=== PATIENT | female | born 1965 | race African-American/Black ===

== ENCOUNTER 2018-08-29 08:01 | Inpatient (IN) | payer MEDICAID ==
[~2018-08-29] VITALS: Ht 149.9 cm; Wt 66.2 kg
[2018-08-29] VITALS (9 sets, daily range): BP systolic 114–163; BP diastolic 61–85
--- NOTE | 2018-08-29 08:14 | NUR ---
ED Nurse Note: Pt came into the ER w/ complaints of abdominal pain x 3 weeks. Pt is rating the pain an 8/10. Non radiating. Pt denies havingt n,v,d. Pt is also complaining of headache that started this morning and rating that pain a 10/10. Pt is A + O x4. Ambulatory. Skin warm to touch.
[2018-08-29] MEDS ORDERED: Ketorolac 30mg Inj IV ONE (08:30)
[2018-08-29 08:59] LABS: APPEARANCE,URINE SLIGHTLY CLOUDY; BILIRUBIN, URINE NEGATIVE (NEGATIVE); GLUCOSE, URINE (UA) NEGATIVE (NEGATIVE); KETONES,URINE NEGATIVE (NEGATIVE); LEUKOCYTE ESTERASE ,URINE 1+ (NEGATIVE); NITRITE,URINE NEGATIVE (NEGATIVE); PH,URINE 5 (4.5-8.0); PROTEIN,URINE 1+ (NEGATIVE); UROBILINOGEN,URINE 1 MG/DL (0.0-1.0)
[2018-08-29 09:00] LABS: COLOR,URINE YELLOW; HEMATOCRIT 21.4 % (37.0-47.0); MEAN CORPUSCULAR VOLUME 62 FL (80-99); PLATELET COUNT 392 K/UL (150-450); RED BLOOD COUNT 3.46 M/UL (4.20-5.40); RED CELL DISTRIBUTION WIDTH 14.7 % (11.6-14.8); WHITE BLOOD COUNT 3.4 K/UL (4.8-10.8)
[2018-08-29 09:02] LABS: HEMOGLOBIN 6.2 G/DL (12.0-16.0)
[2018-08-29 09:03] LABS: ANION GAP 9 mmol/L (5-15); BLOOD UREA NITROGEN 9 mg/dL (7-18); CALCIUM 8.7 MG/DL (8.5-10.1); CARBON DIOXIDE 26 MMOL/L (21-32); CHLORIDE 105 MMOL/L (98-107); CREATININE 0.6 MG/DL (0.55-1.30); POTASSIUM 3.8 MMOL/L (3.5-5.1); SODIUM 140 MMOL/L (136-145)
[2018-08-29 09:08] LABS: ALANINE AMINOTRANSFERASE 17 U/L (12-78); ALBUMIN 3.7 G/DL (3.4-5.0); ALBUMIN/GLOBULIN RATIO 0.9 (1.0-2.7); ALKALINE PHOSPHATASE 52 U/L (46-116); ASPARTATE AMINO TRANSFERASE 13 U/L (15-37); BILIRUBIN,TOTAL 0.2 MG/DL (0.2-1.0)
--- NOTE | 2018-08-29 09:50 | NUR ---
ED Nurse Note: Notified Dr. Whitfield of hgb level of 6.2. Will continue to monitor.
[2018-08-29] MEDS ORDERED: oxyCODONE HCL/Acetaminophen 5/325mg ORAL ONE (11:00)
--- NOTE | 2018-08-29 11:48 | NUR ---
ED Nurse Note: Called lab for blood, blood still pending.
--- NOTE | 2018-08-29 13:05 | Emergency Room Report ---
History of Present Illness General Chief Complaint: Abdominal Pain Source: Patient Present Illness HPI Patient presents with 2 problems. She has been having headaches for 3 weeks. She feels pounding pressure and also tenderness over the left mastoid process. She denies any fevers or chills. There is no change in hearing. She is never had headaches like this before. There is no nausea or vomiting. The pain is rated 8/10 and constant. She denies any family history of aneurysms. The pain gradually came on and has persisted. She denies taking blood thinners , oncologic problems, unilateral weakness. The second problem is epigastric pain. She says she feels burning indigestion feelings. Also pressure in the upper abdomen. There is no change in her bowels. She denies cardiac risk factors and denies chest pain. The patient has anemia. She has extremely heavy periods. She denies dysuria. The patient does not like taking medication and has not taken any for the headache or the epigastric discomfort. 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: 08/09/18 Reviewed Nursing Documentation: PMH: Agreed; PSxH: Agreed Nursing Documentation-PMH Past Medical History: No Stated History Review of Systems All Other Systems: negative except mentioned in HPI Physical Exam Vital Signs Date Time Temp Pulse Resp B/P (MAP) Pulse Ox O2 Delivery O2 Flow Rate FiO2 08/29/18 08:07 98.1 69 18 155/85 99 Room Air 08/29/18 08:18 100 Sp02 EP Interpretation: reviewed, normal General Appearance: well appearing, no apparent distress, GCS 15 Head: normocephalic Eyes: bilateral eye PERRL, bilateral eye EOMI, bilateral eye conjunctivae pale ENT: moist mucus membranes, other - Some fluid behind left tympanic membrane Neck: supple Respiratory: lungs clear, normal breath sounds Cardiovascular #1: regular rate, rhythm Cardiovascular #2: 2+ radial (R) Gastrointestinal: normal inspection, normal bowel sounds, non tender, no mass, non-distended Musculoskeletal: back normal, gait/station normal, normal range of motion Neurologic: alert, oriented x3, grossly normal Psychiatric: mood/affect normal Skin: warm/dry, pallor Medical Decision Making Diagnostic Impression: Primary Impression: Profound anemia Qualified Codes: D50.0 - Iron deficiency anemia secondary to blood loss ( chronic) Additional Impressions: Menometrorrhagia Headache Qualified Codes: G44.89 - Other headache syndrome ER Course Patient presents with headache and epigastric pain. Differential includes tension, mastoiditis, serous otitis media on the left, migraine variant amongst others. The epigastric pain differential includes gastritis, gallbladder disease, GERD amongst others. Patient will be evaluated with labs. The patient will receive Toradol and Pepcid. CT of the head is not indicated based on the clinical history and exam. Called with critical hemoglobin. Blood sent for type and Rh. Discussed with patient risks and benefit of blood transfusion. CMP and urinalysis negative. Headache most likely related to anemia and possibly tension. Percocet given orally. Blood transfusions begun. Patient with resolution of symptoms. Admitted for continued blood transfusion and further evaluation to Dr. Burton. Laboratory Tests Test 08/29/18 08:32 White Blood Count 3.4 K/UL (4.8-10.8) L Red Blood Count 3.46 M/UL (4.20-5.40) L Hemoglobin 6.2 G/DL (12.0-16.0) *L Hematocrit 21.4 % (37.0-47.0) L Mean Corpuscular Volume 62 FL (80-99) L Mean Corpuscular Hemoglobin 17.9 PG (27.0-31.0) L Mean Corpuscular Hemoglobin Concent 28.8 G/DL (32.0-36.0) L Red Cell Distribution Width 14.7 % (11.6-14.8) Platelet Count 392 K/UL (150-450) Mean Platelet Volume 5.8 FL (6.5-10.1) L Neutrophils (%) (Auto) % (45.0-75.0) Lymphocytes (%) (Auto) % (20.0-45.0) Monocytes (%) (Auto) % (1.0-10.0) Eosinophils (%) (Auto) % (0.0-3.0) Basophils (%) (Auto) % (0.0-2.0) Differential Total Cells Counted 100 Neutrophils % (Manual) 61 % (45-75) Lymphocytes % (Manual) 32 % (20-45) Monocytes % (Manual) 2 % (1-10) Eosinophils % (Manual) 5 % (0-3) H Basophils % (Manual) 0 % (0-2) Band Neutrophils 0 % (0-8) Platelet Estimate Adequate Platelet Morphology Normal Hypochromasia 2+ Erythrocyte Sedimentation Rate 35 MM/HR (0-30) H Urine Color Yellow Urine Appearance Slightly cloudy Urine pH 5 (4.5-8.0) Urine Specific [place] 1.020 (1.005-1.035) Urine Protein 1+ (NEGATIVE) H Urine Glucose (UA) Negative (NEGATIVE) Urine Ketones Negative (NEGATIVE) Urine Blood 1+ (NEGATIVE) H Urine Nitrite Negative (NEGATIVE) Urine Bilirubin Negative (NEGATIVE) Urine Urobilinogen 1 MG/DL (0.0-1.0) H Urine Leukocyte Esterase 1+ (NEGATIVE) H Urine RBC 0-2 /HPF (0 - 2) Urine WBC 2-4 /HPF (0 - 2) Urine Squamous Epithelial Cells Moderate /LPF (NONE/OCC) H Urine Bacteria Few /HPF (NONE) Urine Mucus Few /LPF (NONE/OCC) H Urine HCG, Qualitative Negative (NEGATIVE) Sodium Level 140 MMOL/L (136-145) Potassium Level 3.8 MMOL/L (3.5-5.1) Chloride Level 105 MMOL/L (98-107) Carbon Dioxide Level 26 MMOL/L (21-32) Anion Gap 9 mmol/L (5-15) Blood Urea Nitrogen 9 mg/dL (7-18) Creatinine 0.6 MG/DL (0.55-1.30) Estimate Glomerular Filtration Rate > 60 mL/min (>60) Glucose Level 96 MG/DL (74-106) Calcium Level 8.7 MG/DL (8.5-10.1) Total Bilirubin 0.2 MG/DL (0.2-1.0) Aspartate Amino Transferase (AST) 13 U/L (15-37) L Alanine Aminotransferase (ALT) 17 U/L (12-78) Alkaline Phosphatase 52 U/L (46-116) Total Protein 7.8 G/DL (6.4-8.2) Albumin 3.7 G/DL (3.4-5.0) Globulin 4.1 g/dL Albumin/Globulin Ratio 0.9 (1.0-2.7) L Lipase 92 U/L (73-393) Rhythm Strip Diag. Results EP Interpretation: yes Rhythm: NSR, no PVC's, no ectopy Last Vital Signs Date Time Temp Pulse Resp B/P (MAP) Pulse Ox O2 Delivery O2 Flow Rate FiO2 08/29/18 20:00 98.0 72 17 128/74 (92) 99 72 08/29/18 14:00 Room Air 08/29/18 13:40 100 Status: improved Disposition: ADMITTED INPATIENT Condition: Serious Scripts No Active Prescriptions or Reported Meds Referrals: NOT CHOSEN IPA/,REFERRING (PCP) Malcolm Whitfield MD Aug 29, 2018 13:05
--- NOTE | 2018-08-29 13:22 | NUR ---
ED Nurse Note: TELEPHONE REPORT GIVEN TO ZENON FRAGA
--- NOTE | 2018-08-29 13:40 | NUR ---
ED Nurse Note: Pt transferred up to med surg unit. No acute distress noted. Left Er w/ all belongings.
--- NOTE | 2018-08-29 13:54 | NUR ---
Patient received to floor at 1350 in stable condition, report received via telephone by ER nurse Peg, patient accompanied to unit by ct scan technician. Belongings accounted for, $106 in mireles counted at bedside by RN and ct scan technician. No acute distress noted, patient is reporting no pain at this time. First bag of ordered blood running through LAC IV @ 150mL/hr, no signs of transfusion reaction noted. Patient oriented to room, instructed on use of call light. Side rails upx2, bed low and locked, call light in reach. Will continue to monitor.
[2018-08-29] MEDS ORDERED: Morphine Sulfate 2mg/ml Inj(IV/IM USE ONLY) IVP PRN (14:00)
[2018-08-29] MEDS ORDERED: LORazepam Inj 2mg/ml 1ml IV PRN (14:00)
[2018-08-29] MEDS ORDERED: Mylanta II UD 30ml ORAL PRN (14:00)
[2018-08-29] MEDS ORDERED: Miralax 17gm pkt ORAL PRN (14:00)
[2018-08-29] MEDS ORDERED: Zolpidem 5mg tab ORAL PRN (14:00)
--- NOTE | 2018-08-29 14:34 | NUR ---
NURSE NOTES: First bag of blood complete. VS stable. Called blood bank and confirmed second bag is ready, will tow picker and administered as ordered.
--- NOTE | 2018-08-29 14:36 | NUR ---
CHARGE NURSE NOTES: Confirmed with Jovita that he wants a total of 3 units of PRBC transfused. Relayed to Emely YARBROUGH.
--- NOTE | 2018-08-29 15:06 | NUR ---
NURSE NOTES: Second unit of PRBC started @ 75mL/hr. Patient is in stable condition, VS stable. At bedside observing for signs of transfusion reaction. Pre transfusion VS: temp 97.4, HR 65, BP 134/85.
--- NOTE | 2018-08-29 15:14 | NUR ---
NURSE NOTES: Blood transfusion rate increased to 100mL/hr. Patient remains in stable condition.
--- NOTE | 2018-08-29 15:21 | NUR ---
NURSE NOTES: 15 minute post transfusion start vital signs: temp 98.6 HR 66 BP 132/84. No distress noted, no signs of transfusion reaction observed. Transfusion rate increased to 125mL/hr.
[2018-08-29 15:51] LABS: LACTATE DEHYDROGENASE 145 U/L (81-234)
[2018-08-29 16:30] LABS: % IRON SATURATION 4 % (15-50); IRON 17 ug/dL (50-175); TOTAL IRON BINDING CAPACITY 482 ug/dL (250-450)
--- NOTE | 2018-08-29 16:45 | NUR ---
NURSE NOTES: Blood transfusion rate increased to 150mL/hr. Patient remains in stable condition.
--- NOTE | 2018-08-29 18:43 | NUR ---
NURSE NOTES: Called Elli in blood bank. Elli reports final bag of blood is not ready yet and she will call when ready. Will continue to monitor.
--- NOTE | 2018-08-29 18:47 | NUR ---
NURSE NOTES: Blood transfusion complete. No signs of transfusion reactions noted. Post transfusion VS: temp 99.3, HR 83, BP 116/71
--- NOTE | 2018-08-29 19:45 | NUR ---
HAND-OFF: Report given to Aruna YARBROUGH. Patient is in stable condition. Endorsed to follow up on third unit of blood.
[2018-08-29] MEDS: Sucralfate 1gm tab ORAL SCH (20:13)
[2018-08-29] MEDS: Pantoprazole Inj IVP SCH (20:13)
--- NOTE | 2018-08-29 20:15 | NUR ---
NURSE NOTES: Recvd report from day shift nurse; pt a/o x4; no s/s of pain; family is at bedside; iv intact and patent; SCD running; VSS; patient ambulates well; safety precautions in place; bed at lowest position; call light within reach; will continue to monitor
[2018-08-29 20:32] LABS: BASOPHILS % (AUTO) 1.6 % (0.0-2.0); HEMATOCRIT 28.1 % (37.0-47.0); HEMOGLOBIN 8.9 G/DL (12.0-16.0); LYMPHOCYTES % (AUTO) 34.4 % (20.0-45.0); MEAN CORPUSCULAR VOLUME 68 FL (80-99); MONOCYTES % (AUTO) 8.9 % (1.0-10.0); NEUTROPHILS % (AUTO) 50.2 % (45.0-75.0); PLATELET COUNT 367 K/UL (150-450); RED BLOOD COUNT 4.17 M/UL (4.20-5.40); RED CELL DISTRIBUTION WIDTH 19.7 % (11.6-14.8); WHITE BLOOD COUNT 5.3 K/UL (4.8-10.8)
--- NOTE | 2018-08-29 22:00 | NUR ---
NURSE NOTES: Per Dr. Infante, no need to infuse 3rd unit of PRBCs. Will continue to monitor.
[2018-08-30] VITALS: BP 114/60
--- NOTE | 2018-08-30 03:01 | History and Physical Report ---
DATE OF ADMISSION: 08/29/2018 CHIEF COMPLAINT: The patient is a 53-year-old female, who presents with a chief complaint of abdominal pain. HISTORY OF PRESENT ILLNESS: Began approximately 3 weeks ago. The patient began to experience epigastric pain. Pain has now become generalized. The patient has had some nausea. The patient denies melena or hematemesis. The patient presented to [place] emergency room. Hemoglobin was found to be 6.2. The patient is admitted for abdominal pain, severe anemia, and probable gastrointestinal hemorrhage. REVIEW OF SYSTEMS: CONSTITUTIONAL: The patient denies weight loss or weight gain. The patient denies fevers or chills. HEENT: The patient denies ear or throat pain. The patient denies headache. CARDIOVASCULAR: The patient denies palpitations or chest pain. CHEST: The patient denies wheeze or shortness of breath. ABDOMINAL: The patient complains of epigastric pain. The patient complains of nausea without vomiting. The patient denies constipation, diarrhea, melena, or hematemesis. GENITOURINARY: The patient denies dysuria or increased frequency of urination. NEUROMUSCULAR: The patient denies seizures or generalized weakness. PAST MEDICAL HISTORY: The patient denies. Last menstrual period stated to be 08/24/2018. PAST SURGICAL HISTORY: Significant for section x2. CURRENT MEDICATIONS: The patient denies. ALLERGIES: No known drug allergies. 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 The patient denies tobacco or alcohol use. PHYSICAL EXAMINATION: VITAL SIGNS: Temperature 98.0, respirations 20, pulse 80, and blood pressure 135/77. GENERAL: The patient is a well-developed and well-nourished female, in no apparent distress. HEENT: Eyes, pupils are equal and responsive to light and accommodation. Extraocular movements are intact. NECK: Supple without lymphadenopathy. CHEST: Lungs are clear to auscultation bilaterally without wheezes or rales. CARDIOVASCULAR: Regular rhythm and rate. S1 and S2 are normal without murmurs, rubs, or gallops. ABDOMEN: Soft, nontender, and nondistended. Positive bowel sounds. No evidence of hepatosplenomegaly. Currently, no rebound or guarding noted. EXTREMITIES: Negative for clubbing, cyanosis, or edema. RECTAL/GENITAL: Refused. NEUROLOGIC: Cranial nerves II through XII are grossly intact without focal deficits. Motor strength is 5/5 bilaterally. Deep tendon reflexes are 2+ plantar. LABORATORY STUDIES: WBC 3.4, hemoglobin 6.2, hematocrit 21.4, and platelets 292,000. Sodium 140, potassium 3.8, chloride 105, CO2 26, BUN 9, creatinine 0.6, and glucose 96. Iron level 17, TIBC 42, and iron saturation 4. ASSESSMENT: This is a 53-year-old female with, 1. Severe anemia. 2. Abdominal pain. 3. Nausea. TREATMENT: 1. Severe anemia. The patient's admission hemoglobin was 6.2. The patient has received 2 units of packed RBCs in the emergency room. Given the history of abdominal pain, the patient may have bleeding ulcer. A Gastroenterology consultation has been obtained with Dr. Derek Alvarenga. The patient will probably require endoscopy and colonoscopy during this hospitalization. 2. Abdominal pain. The patient has been offered pain medication. The patient is currently receiving morphine intravenously every 4 hours p.r.n. The patient has been started on intravenous Protonix. 3. Nausea with vomiting. The patient has been started on Zofran p.r.n. Deven Infante M.D. DR: RICHA JOB#: [id number] CC:
[2018-08-30 04:00] VITALS: BP 120/62
[2018-08-30 06:38] LABS: BASOPHILS % (AUTO) 1.5 % (0.0-2.0); HEMATOCRIT 28.5 % (37.0-47.0); HEMOGLOBIN 8.7 G/DL (12.0-16.0); LYMPHOCYTES % (AUTO) 35.9 % (20.0-45.0); MEAN CORPUSCULAR VOLUME 69 FL (80-99); MONOCYTES % (AUTO) 7.3 % (1.0-10.0); NEUTROPHILS % (AUTO) 48.3 % (45.0-75.0); PLATELET COUNT 314 K/UL (150-450); RED BLOOD COUNT 4.15 M/UL (4.20-5.40); RED CELL DISTRIBUTION WIDTH 19.7 % (11.6-14.8); WHITE BLOOD COUNT 3.8 K/UL (4.8-10.8)
[2018-08-30 07:03] LABS: ALANINE AMINOTRANSFERASE 18 U/L (12-78); ALBUMIN 3.2 G/DL (3.4-5.0); ALBUMIN/GLOBULIN RATIO 0.9 (1.0-2.7); ALKALINE PHOSPHATASE 49 U/L (46-116); ANION GAP 6 mmol/L (5-15); ASPARTATE AMINO TRANSFERASE 15 U/L (15-37); BILIRUBIN,TOTAL 0.6 MG/DL (0.2-1.0); BLOOD UREA NITROGEN 7 mg/dL (7-18); CALCIUM 8.6 MG/DL (8.5-10.1); CARBON DIOXIDE 28 MMOL/L (21-32); CHLORIDE 106 MMOL/L (98-107); CREATININE 0.7 MG/DL (0.55-1.30); POTASSIUM 4.3 MMOL/L (3.5-5.1); SODIUM 140 MMOL/L (136-145)
--- NOTE | 2018-08-30 07:26 | NUR ---
HAND-OFF: Report given to
--- NOTE | 2018-08-30 07:30 | NUR ---
NURSE NOTES: Patient is in bed awake and able to verbalize needs. Patient is stable, denies pain or SOB at this time. Patient encouraged to use call light for assistance, verbalized understanding. Patient is comfortable in bed with call light within reach. All needs met at this time. All safety measures provided. Will continue to monitor.
[2018-08-30 08:00] VITALS: BP 129/72
[2018-08-30] MEDS: Pantoprazole Inj IVP SCH (09:05)
[2018-08-30] MEDS: Sucralfate 1gm tab ORAL SCH ×2 (09:05→13:14)
--- NOTE | 2018-08-30 10:55 | GI Initial Consult Note ---
History of Present Illness General Date patient seen: Aug 30, 2018 Time patient seen: 10:51 Reason for Hospitalization: Abdominal Pain Referring physician: ROSS RUTLEDGE Reason for Consultation: Abdominal pain Present Illness HPI Patient presents with 2 problems. She has been having headaches for 3 weeks. She feels pounding pressure and also tenderness over the left mastoid process. She denies any fevers or chills. There is no change in hearing. She is never had headaches like this before. There is no nausea or vomiting. The pain is rated 8/10 and constant. She denies any family history of aneurysms. The pain gradually came on and has persisted. She denies taking blood thinners , oncologic problems, unilateral weakness. The second problem is epigastric pain. She says she feels burning indigestion feelings. Also pressure in the upper abdomen. There is no change in her bowels. She denies cardiac risk factors and denies chest pain. The patient has anemia. She has extremely heavy periods. She denies dysuria. The patient does not like taking medication and has not taken any for the headache or the epigastric discomfort. GI consulted for abdominal pain. Patient was seen, awake alert and oriented x4 no apparent distress. Patient denied any abdominal pain at this time, however stated he had abdominal discomfort which he felt was acid reflux. In addition the patient had complaints of abdominal bloating with excessive flatulence. The patient has no history of endoscopic or colonoscopy. She presents today with low hemoglobin level of 6.2 and low iron saturation 4%. She is aware of her anemia, believes that it was contributed by her recent menorrhagia which occurred approximately 3 days ago. Patient denies any constipation, diarrhea, nausea or vomiting. The patient also complains of a sharp pain to her left temporal bone. 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 Reviewed Nursing Documentation: PMH: Agreed; PSxH: Agreed Nursing Documentation-PM Past Medical History: No Stated History Social History: Denies: smoking, alcohol use, drug use, other Review of Systems All Other Systems: negative except mentioned in HPI Physical Exam Vital Signs Date Time Temp Pulse Resp B/P (MAP) Pulse Ox O2 Delivery O2 Flow Rate FiO2 08/29/18 08:07 98.1 69 18 155/85 99 Room Air 08/29/18 08:18 100 Sp02 EP Interpretation: reviewed, normal Labs Laboratory Tests Test 08/29/18 19:23 08/29/18 20:07 08/30/18 05:35 Prothrombin Time 10.5 SEC (9.30-11.50) Prothromb Time International Ratio 1.0 (0.9-1.1) Activated Partial Thromboplast Time 26 SEC (23-33) White Blood Count 5.3 K/UL (4.8-10.8) # 3.8 K/UL (4.8-10.8) L Red Blood Count 4.17 M/UL (4.20-5.40) L 4.15 M/UL (4.20-5.40) L Hemoglobin 8.9 G/DL (12.0-16.0) #L 8.7 G/DL (12.0-16.0) L Hematocrit 28.1 % (37.0-47.0) #L 28.5 % (37.0-47.0) L Mean Corpuscular Volume 68 FL (80-99) #L 69 FL (80-99) L Mean Corpuscular Hemoglobin 21.3 PG (27.0-31.0) L 21.0 PG (27.0-31.0) L Mean Corpuscular Hemoglobin Concent 31.5 G/DL (32.0-36.0) L 30.6 G/DL (32.0-36.0) L Red Cell Distribution Width 19.7 % (11.6-14.8) H 19.7 % (11.6-14.8) H Platelet Count 367 K/UL (150-450) 314 K/UL (150-450) Mean Platelet Volume 5.5 FL (6.5-10.1) L 5.8 FL (6.5-10.1) L Neutrophils (%) (Auto) 50.2 % (45.0-75.0) 48.3 % (45.0-75.0) Lymphocytes (%) (Auto) 34.4 % (20.0-45.0) 35.9 % (20.0-45.0) Monocytes (%) (Auto) 8.9 % (1.0-10.0) 7.3 % (1.0-10.0) Eosinophils (%) (Auto) 5.0 % (0.0-3.0) H 7.0 % (0.0-3.0) H Basophils (%) (Auto) 1.6 % (0.0-2.0) 1.5 % (0.0-2.0) Sodium Level 140 MMOL/L (136-145) Potassium Level 4.3 MMOL/L (3.5-5.1) Chloride Level 106 MMOL/L (98-107) Carbon Dioxide Level 28 MMOL/L (21-32) Anion Gap 6 mmol/L (5-15) Blood Urea Nitrogen 7 mg/dL (7-18) Creatinine 0.7 MG/DL (0.55-1.30) Estimat Glomerular Filtration Rate > 60 mL/min (>60) Glucose Level 82 MG/DL (74-106) Calcium Level 8.6 MG/DL (8.5-10.1) Total Bilirubin 0.6 MG/DL (0.2-1.0) Aspartate Amino Transf (AST/SGOT) 15 U/L (15-37) Alanine Aminotransferase (ALT/SGPT) 18 U/L (12-78) Alkaline Phosphatase 49 U/L (46-116) Total Protein 6.9 G/DL (6.4-8.2) Albumin 3.2 G/DL (3.4-5.0) L Globulin 3.7 g/dL Albumin/Globulin Ratio 0.9 (1.0-2.7) L Thyroid Stimulating Hormone (TSH) 0.505 uiU/mL (0.358-3.740) General Appearance: well appearing, no apparent distress, alert Head: normocephalic EENT: PERRL/EOMI, normal ENT inspection Neck: supple Respiratory: normal breath sounds, no respiratory distress Cardiovascular: normal rate Gastrointestinal: normal inspection, non tender, soft, normal bowel sounds, non -distended Rectal: deferred Genitourinary: no CVA tenderness Musculoskeletal: normal inspection, back normal Neurologic: normal inspection, alert, oriented x3, responsive Psychiatric: normal inspection, judgement/insight normal, memory normal Skin: normal inspection, normal color, no rash, warm/dry, palpation normal, well hydrated Lymphatic: normal inspection, no adenopathy Current Medications Current Medications Medications (Trade) Dose Ordered Sig/Chloe Route PRN Reason Start Time Stop Time Status Last Admin Dose Admin Acetaminophen (Tylenol) 650 mg Q4H PRN ORAL fever 08/29/18 14:00 09/28/18 13:59 Al Hydroxide/Mg Hydroxide (Mylanta II) 30 ml Q6H PRN ORAL dyspepsia 08/29/18 14:00 09/28/18 13:59 Dextrose (Dextrose 50%) 25 ml Q30M PRN IV Hypoglycemia 08/29/18 14:00 09/28/18 13:59 Dextrose (Dextrose 50%) 50 ml Q30M PRN IV Hypoglycemia 08/29/18 14:00 09/28/18 13:59 Lorazepam (Ativan 2mg/ml 1ml) 0.5 mg Q4H PRN IV For Anxiety 08/29/18 14:00 09/05/18 13:59 Morphine Sulfate (Morphine Sulfate) 1 mg Q4H PRN IVP For Pain 08/29/18 14:00 09/05/18 13:59 08/30/18 06:14 Ondansetron HCl (Zofran) 4 mg Q6H PRN IVP Nausea & Vomiting 08/29/18 14:00 09/28/18 13:59 Pantoprazole (Protonix) 40 mg EVERY 12 HOURS IVP 08/29/18 21:00 09/28/18 20:59 08/30/18 09:05 Polyethylene Glycol (Miralax) 17 gm HSPRN PRN ORAL Constipation 08/29/18 14:00 09/28/18 13:59 Sucralfate (Carafate) 1 gm FOUR TIMES A DAY ORAL 08/29/18 21:00 09/28/18 20:59 08/30/18 09:05 Zolpidem Tartrate (Ambien) 5 mg HSPRN PRN ORAL Insomnia 08/29/18 14:00 09/05/18 13:59 GI: Plan Problems: (1) GERD (gastroesophageal reflux disease) (2) Profound anemia (3) Menometrorrhagia (4) Headache Plan EGD/colonoscopy only if emergent, profound anemia most likely due to menorrhagia. anemia work up OB stool r/o GI bleed monitor H&H, prn transfusions bowel regime ppi regular diet fu labs outpatient GI procedures Discussed with Dr. Alvarenga. Thank you for this patient referral, we will follow. The patient was seen and examined at bedside and all new and available data was reviewed in the patients chart. I agree with the above findings, impression and plan. (Patient seen earlier today. Signature stamp does not reflect patient encounter time.). - MD Kadi MartinezCity Of Hope, [place] CIGAR INSPECTOR Aug 30, 2018 10:55
[2018-08-30 12:00] VITALS: BP 135/105
[2018-08-30] MEDS ORDERED: SUCRALFATE1 GM ORAL (12:08)
--- NOTE | 2018-08-30 12:14 | Consultation ---
History of Present Illness General Date patient seen: Aug 30, 2018 Chief Complaint: Abdominal Pain Referring physician: ROSS RUTLEDGE Reason for Consultation: inpatient management Present Illness HPI 53 year old female with hx of heavy menses, presented to ER with CC of headaches for 3 weeks. She denies any fevers or chills. The pain is rated 8/ 10 and constant. She denies any family history of aneurysms. The pain gradually came on and has persisted. She is also c/o epigastric pain. She says she feels burning indigestion feelings. Also pressure in the upper abdomen. She has extremely heavy periods. She had hemoglobin of 6 and is admitted for severe anemia. Allergies: Coded Allergies: No Known Allergies (Unverified , 08/29/18) Medication History Scheduled Sucralfate* (Carafate*), 1 GM ORAL FOUR TIMES A DAY Patient History Healthcare decision maker N Resuscitation status Full Code Advanced Directive on File Past Medical/Surgical History Past Medical/Surgical History: (1) Menometrorrhagia Review of Systems All Other Systems: negative except mentioned in HPI Physical Exam General Appearance: WD/WN Lines, tubes and drains: peripheral HEENT: normocephalic, atraumatic Neck: non-tender, normal alignment Respiratory/Chest: chest wall non-tender, lungs clear Cardiovascular/Chest: normal peripheral pulses Abdomen: normal bowel sounds Genitourinary/Rectal: normal genital exam Extremities: normal range of motion Last 24 Hour Vital Signs Date Time Temp Pulse Resp B/P (MAP) Pulse Ox O2 Delivery O2 Flow Rate FiO2 08/30/18 09:00 Room Air 08/30/18 08:00 97.9 64 19 129/72 (91) 98 08/30/18 04:00 97.6 63 17 120/62 (81) 98 08/30/18 00:00 97.8 68 19 114/60 (78) 98 72 08/29/18 21:00 Room Air 08/29/18 20:00 98.0 72 17 128/74 (92) 99 72 08/29/18 18:47 99.3 83 18 116/71 (86) 99 08/29/18 15:21 98.6 66 18 132/84 (100) 99 08/29/18 14:32 97.4 65 18 134/85 (101) 100 08/29/18 14:00 Room Air 08/29/18 13:40 98.1 88 20 135/77 98 Room Air 100 08/29/18 12:30 98.0 65 16 08/29/18 12:27 97.1 84 18 114/61 100 Room Air 100 08/29/18 12:14 97.1 78 18 08/29/18 12:13 97.1 78 16 114/61 100 Room Air 100 Intake and Output 08/29/18 08/30/18 18:59 06:59 Intake Total 300 ml 860 ml Balance 300 ml 860 ml Intake Oral 300 ml 360 ml Blood Product 500 ml # Voids 3 1 Laboratory Tests Test 08/29/18 19:23 08/29/18 20:07 08/30/18 05:35 Prothrombin Time 10.5 SEC (9.30-11.50) Prothromb Time International Ratio 1.0 (0.9-1.1) Activated Partial Thromboplast Time 26 SEC (23-33) White Blood Count 5.3 K/UL (4.8-10.8) # 3.8 K/UL (4.8-10.8) L Red Blood Count 4.17 M/UL (4.20-5.40) L 4.15 M/UL (4.20-5.40) L Hemoglobin 8.9 G/DL (12.0-16.0) #L 8.7 G/DL (12.0-16.0) L Hematocrit 28.1 % (37.0-47.0) #L 28.5 % (37.0-47.0) L Mean Corpuscular Volume 68 FL (80-99) #L 69 FL (80-99) L Mean Corpuscular Hemoglobin 21.3 PG (27.0-31.0) L 21.0 PG (27.0-31.0) L Mean Corpuscular Hemoglobin Concent 31.5 G/DL (32.0-36.0) L 30.6 G/DL (32.0-36.0) L Red Cell Distribution Width 19.7 % (11.6-14.8) H 19.7 % (11.6-14.8) H Platelet Count 367 K/UL (150-450) 314 K/UL (150-450) Mean Platelet Volume 5.5 FL (6.5-10.1) L 5.8 FL (6.5-10.1) L Neutrophils (%) (Auto) 50.2 % (45.0-75.0) 48.3 % (45.0-75.0) Lymphocytes (%) (Auto) 34.4 % (20.0-45.0) 35.9 % (20.0-45.0) Monocytes (%) (Auto) 8.9 % (1.0-10.0) 7.3 % (1.0-10.0) Eosinophils (%) (Auto) 5.0 % (0.0-3.0) H 7.0 % (0.0-3.0) H Basophils (%) (Auto) 1.6 % (0.0-2.0) 1.5 % (0.0-2.0) Sodium Level 140 MMOL/L (136-145) Potassium Level 4.3 MMOL/L (3.5-5.1) Chloride Level 106 MMOL/L (98-107) Carbon Dioxide Level 28 MMOL/L (21-32) Anion Gap 6 mmol/L (5-15) Blood Urea Nitrogen 7 mg/dL (7-18) Creatinine 0.7 MG/DL (0.55-1.30) Estimat Glomerular Filtration Rate > 60 mL/min (>60) Glucose Level 82 MG/DL (74-106) Calcium Level 8.6 MG/DL (8.5-10.1) Total Bilirubin 0.6 MG/DL (0.2-1.0) Aspartate Amino Transf (AST/SGOT) 15 U/L (15-37) Alanine Aminotransferase (ALT/SGPT) 18 U/L (12-78) Alkaline Phosphatase 49 U/L (46-116) Total Protein 6.9 G/DL (6.4-8.2) Albumin 3.2 G/DL (3.4-5.0) L Globulin 3.7 g/dL Albumin/Globulin Ratio 0.9 (1.0-2.7) L Thyroid Stimulating Hormone (TSH) 0.505 uiU/mL (0.358-3.740) Height (Feet): 4 Height (Inches): 11.00 Weight (Pounds): 146 Medications Current Medications Medications (Trade) Dose Ordered Sig/Chloe Route PRN Reason Start Time Stop Time Status Last Admin Dose Admin Acetaminophen (Tylenol) 650 mg Q4H PRN ORAL fever 08/29/18 14:00 09/28/18 13:59 Al Hydroxide/Mg Hydroxide (Mylanta II) 30 ml Q6H PRN ORAL dyspepsia 08/29/18 14:00 09/28/18 13:59 Dextrose (Dextrose 50%) 25 ml Q30M PRN IV Hypoglycemia 08/29/18 14:00 09/28/18 13:59 Dextrose (Dextrose 50%) 50 ml Q30M PRN IV Hypoglycemia 08/29/18 14:00 09/28/18 13:59 Iron Sucrose 100 mg/Sodium Chloride 60 ml @ 240 mls/hr BEDTIME IVPB 08/30/18 21:00 09/03/18 21:14 UNV Iron Sucrose 200 mg/Sodium Chloride 120 ml @ 240 mls/hr ONCE ONCE IVPB 08/30/18 12:15 08/30/18 12:44 UNV Lorazepam (Ativan 2mg/ml 1ml) 0.5 mg Q4H PRN IV For Anxiety 08/29/18 14:00 09/05/18 13:59 Morphine Sulfate (Morphine Sulfate) 1 mg Q4H PRN IVP For Pain 08/29/18 14:00 09/05/18 13:59 08/30/18 06:14 Ondansetron HCl (Zofran) 4 mg Q6H PRN IVP Nausea & Vomiting 08/29/18 14:00 09/28/18 13:59 Pantoprazole (Protonix) 40 mg EVERY 12 HOURS IVP 08/29/18 21:00 09/28/18 20:59 08/30/18 09:05 Polyethylene Glycol (Miralax) 17 gm HSPRN PRN ORAL Constipation 08/29/18 14:00 09/28/18 13:59 Sucralfate (Carafate) 1 gm FOUR TIMES A DAY ORAL 08/29/18 21:00 09/28/18 20:59 08/30/18 09:05 Zolpidem Tartrate (Ambien) 5 mg HSPRN PRN ORAL Insomnia 08/29/18 14:00 09/05/18 13:59 Assessment/Plan Problem List: (1) Profound anemia ICD Codes: D64.9 - Anemia, unspecified SNOMED: 434649123 Qualifiers: Qualified Codes: D50.0 - Iron deficiency anemia secondary to blood loss ( chronic) (2) Menometrorrhagia ICD Codes: N92.1 - Excessive and frequent menstruation with irregular cycle SNOMED: 847796962 Diagnosis [place] I: pt got 2 units of prbc will give some Iron iv CT of head for intractable headache. Ilana Hussein MD Aug 30, 2018 12:14
[2018-08-30] MEDS ORDERED: ACETAMINOPHEN-1 EAC1 ORAL (12:15)
[2018-08-30] MEDS ORDERED: PROTONIX20 MG ORAL (12:15)
--- NOTE | 2018-08-30 13:04 | Diagnostic Imaging Report ---
Indications: Headache Technique: Spiral acquisitions obtained through the brain. Angled axial and coronal 5 x 5 mm slices were reconstructed. Total dose length product 1245.89 mGycm. CTDI vol(s) 70.38 mGy. Dose reduction achieved using automated exposure control Comparison: None. Findings: No acute intracranial hemorrhage or edema. No mass effect nor midline shift. Normal espitia-white differentiation. Normal-sized ventricles and extra axial CSF spaces. Old lacunar infarct versus prominent perivascular space is seen in the right posterior basal ganglia region. The calvarium is intact. Visualized orbits and sinuses are unremarkable. Impression: Old lacunar infarct versus prominent perivascular space in the right posterior basal ganglia Negative for acute intracranial bleed or mass effect The CT scanner at [facility] is accredited by the [employer] and the scans are performed using protocols designed to limit radiation exposure to as low as reasonably achievable to attain images of sufficient resolution adequate for diagnostic evaluation.
--- NOTE | 2018-08-30 13:11 | Diagnostic Imaging Report ---
APPROVED REPORT CPT Code: 85789 Present Symptoms Comments: BILATERAL LEGS PAIN. BILATERAL: Imaging reveals a patent deep venous system bilaterally. There is no evidence of thrombus within the femoral, popliteal or tibial segments. The greater saphenous veins are also within normal limits. Doppler indicates normal spontaneous flow within these segments.
[2018-08-30] MEDS ORDERED: Iron Sucrose 200 MG in NS 110 ML IV ONE (14:30)
--- NOTE | 2018-08-30 15:04 | NUR ---
CASE MANAGEMENT:REVIEW 53 YR OLD FEMALE PRESENTED TO ER CC: ABDOMINAL PAIN AND HEADACHE SI: PROFOUND SYMPTOMATIC ANEMIA 98.1 69 18 155/85 99% ON RA H/H-6.2/21.4 IS: IV PEPCID IV TORADOL PERCOCET PO TYPE & CROSS TRANSFUSE 2 UNITS PRBC'S : TO MED/SURG 3 east INTERQUAL CRITERIA MET
--- NOTE | 2018-08-30 15:52 | NUR ---
NURSE NOTES: Patient discharged home as ordered. Patient is stable. Denies pain or SOB. Patient given thorough discharge instructions by RN, verbalized understanding. Patient has all belongings and medications. Patient was given thorough medication instructions. No IV access. Skin is clean, dry, and intact. Patient assisted into private vehicle by RN without incident.
--- NOTE | 2018-08-31 10:33 | Discharge Summary ---
Discharge Summary Discharge Summary _ DATE OF ADMISSION: 08/29/2018 DATE OF DISCHARGE: 08/30/2018 DISCHARGED BY: Dr. Burton REASON FOR ADMISSION: 53 years old female presented to emergency department complaining of 2 problems. Patient had headaches for 3 weeks. Patient reported pounding pressure and tenderness over the left mastoid process. Patient denied fever and chills. Patient denies change in hearing. Patient never had headaches like this before. No nausea or vomiting. Pain described as constant and rated 8 out of 10 on a scale 1-10. She denied family history of aneurysm. She denied taking blood thinners, oncological problem and unilateral weakness. Patient also reported epigastric pain with indigestion. No change in bowel movements . She denied chest pain, denied cardiac risk factors. Patient admitted to have extremely heavy menstrual periods, and as a result was told that she had anemia . She denied dysuria and urinary frequency. Upon evaluation vital signs revealed slightly elevated blood pressure 155/85. Laboratory work-up revealed WBC 3.4, hemoglobin 6.2, hematocrit 21.4, MCV 62, platelet count 392. Urinalysis revealed mild pyuria but only few bacteria , +1 leukocyte esterase + 1 protein. Stable electrolytes. BUN 9, creatinine 0.6. Glucose 96. Albumin 3.7. Lipase 92. Stable LFT. EKG revealed sinus rhythm, no acute ischemic changes. Patient subsequently was admitted with headache and profound anemia CONSULTANTS: pulmonary HOSPITAL COURSE: Patient admitted to medical surgical floor. Patient started on IV hydration. Patient received 2 units of packed red blood cells. Prior to discharge hemoglobin 8.7, hematocrit 28.5. Anemia work-up revealed low ferritin -6 . In addition to blood transfusion, patient received IV Venofer. GI prophylaxis provided. Patient also start on Carafate. Pain management was addressed. Symptomatic care provided. Antiemetic were on board as needed Pain was controlled. CT of the head revealed no acute intracranial pathology. Old lacunar infarct versus prominent perivascular space in the right posterior basal ganglia was noted. Venous duplex bilateral lower extremity revealed no evidence of acute DVT. Pulse oximetry was stable on room air. Abdominal pain and headaches resolved. Patient was recommended to have outpatient GI evaluation with possible colonoscopy and endoscopy if pain persist. Follow-up as outpatient with [facility] [facility] specialist for management of menometrorrhagia. Patient clinically stabilized and was ready for discharge home. Due to rapid and unexpected improvement in patient condition, patient was discharged in 1 day. FINAL DIAGNOSES: Profound anemia requiring blood transfusion Menometrorrhagia Headache -resolved Abdominal pain -resolved DISCHARGE MEDICATIONS: See Medication Reconciliation list. DISCHARGE INSTRUCTIONS: Patient was discharged home with home health services. Follow up with primary care provider in one week. I have been assigned to dictate discharge summary for this account. I was not involved in the patient's management. Sussy Wiggins NP Aug 31, 2018 10:33
[2018-08-31] MEDS ORDERED: Iron Sucrose 100 MG in NS 55 ML IV SCH (21:00)
== END 2018-08-30 15:50 | disposition home or self-care (01) | DRG 663 ==
LOC: EMR 08:36 → CANBEDREQ 09:57 → 3E 12:19 → EDBEDREQ 13:07
PROC: 30233N1 Transfusion of Nonautologous Red Blood Cells into Peripheral Vein, Percutaneous Approach (ICD-10-PCS; principal; 2018-08-29)
DX: D50.0 Iron deficiency anemia secondary to blood loss (chronic) (principal); K21.9 Gastro-esophageal reflux disease without esophagitis; N92.1 Excessive and frequent menstruation with irregular cycle; R51 Headache; R10.9 Unspecified abdominal pain
CPT/HCPCS: 36415; 70450; 80053; 81003; 81025; 82378; 82607; 82728; 82746; 83540; 83550; 83615; 83690; 84443; 85007; 85025; 85044; 85060; 85610; 85651; 85730; 86850; 86900; 86901; 86920; 93970; 96374; 96375; 99285

== ENCOUNTER 2018-09-06 17:04 | Emergency (ER) | payer MEDICAID ==
[~2018-09-06] VITALS: Ht 149.9 cm; Wt 65.8 kg
[~2018-09-06 17:04] MED LIST: ACETAMINOPHEN-1 EAC1 ORAL; PROTONIX20 MG ORAL; SUCRALFATE1 GM ORAL
--- NOTE | 2018-09-06 17:25 | NUR ---
ED Nurse Note: PT WALKED IN TO ER TODAY FROM HOME. AOX4. PT C/O LOWER ABDOMINAL PAIN, 12/17, RADIATING TO LOWER BACK X 2 DAYS AGO. PT DENIES ANY RECENT TRAUMA OR INJURY. PT DENIES NAUSEA, VOMITING, OR DIARRHEA. PT DENIES ANY DIFFICULTY URINATING, PAINFUL URINATION, OR BURNING SENSATION.
[2018-09-06 17:26] VITALS: BP 142/76
[2018-09-06] MEDS ORDERED: Isovue-300 100ml vial INJ PRN (18:15)
[2018-09-06 18:31] LABS: APPEARANCE,URINE CLEAR; BILIRUBIN, URINE NEGATIVE (NEGATIVE); COLOR,URINE PALE YELLOW; GLUCOSE, URINE (UA) NEGATIVE (NEGATIVE); KETONES,URINE NEGATIVE (NEGATIVE); LEUKOCYTE ESTERASE ,URINE 1+ (NEGATIVE); NITRITE,URINE NEGATIVE (NEGATIVE); PH,URINE 7 (4.5-8.0); PROTEIN,URINE NEGATIVE (NEGATIVE); UROBILINOGEN,URINE NORMAL MG/DL (0.0-1.0)
--- NOTE | 2018-09-06 18:32 | NUR ---
ED Nurse Note: PT GIVEN READI-CAT.
[2018-09-06 18:33] LABS: BASOPHILS % (AUTO) 1.6 % (0.0-2.0); EOSINOPHILS % (AUTO) 6.9 % (0.0-3.0); HEMATOCRIT 30.6 % (37.0-47.0); HEMOGLOBIN 9.3 G/DL (12.0-16.0); MEAN CORPUSCULAR VOLUME 70 FL (80-99); MONOCYTES % (AUTO) 6.7 % (1.0-10.0); NEUTROPHILS % (AUTO) 53.8 % (45.0-75.0); PLATELET COUNT 218 K/UL (150-450); RED BLOOD COUNT 4.37 M/UL (4.20-5.40); RED CELL DISTRIBUTION WIDTH 22.9 % (11.6-14.8)
[2018-09-06 18:46] LABS: ANION GAP 8 mmol/L (5-15); BLOOD UREA NITROGEN 8 mg/dL (7-18); CALCIUM 9.3 MG/DL (8.5-10.1); CARBON DIOXIDE 26 MMOL/L (21-32); CHLORIDE 106 MMOL/L (98-107); CREATININE 0.7 MG/DL (0.55-1.30); SODIUM 140 MMOL/L (136-145)
[2018-09-06 18:50] LABS: ALANINE AMINOTRANSFERASE 35 U/L (12-78); ALBUMIN 3.7 G/DL (3.4-5.0); ALBUMIN/GLOBULIN RATIO 0.9 (1.0-2.7); ALKALINE PHOSPHATASE 50 U/L (46-116); ASPARTATE AMINO TRANSFERASE 21 U/L (15-37); BILIRUBIN,TOTAL 0.2 MG/DL (0.2-1.0)
--- NOTE | 2018-09-06 19:13 | NUR ---
ED Nurse Note: REPORT GIVEN TO ZENON FISHER.
--- NOTE | 2018-09-06 19:14 | NUR ---
monitor.ED Nurse Note: Received report from Luis M/ZENON. Pt is A/O X4. VSS, will continue to monitor.
[2018-09-06 19:15] VITALS: BP 138/73
[2018-09-06 19:16] VITALS: BP 139/65
--- NOTE | 2018-09-06 19:16 | Emergency Room Report ---
History of Present Illness General Chief Complaint: Abdominal Pain Source: Patient Present Illness HPI 53-year-old female presents to the emergency department complaining of persistent abdominal pain since previous discharge after admission on the 28. He reports increase in belching and gas pains. Patient is nausea, vomiting, fevers, chills, constipation or diarrhea. Patient denies urinary frequency, urgency, hematuria or dysuria. She also complains of abdominal bloating. She reports that she has been taking pantoprazole as prescribed with no relief of her symptoms. Patient is concerned as during her last admission she states that she was not evaluated for any of her abdominal symptoms. She reports history of significant anemia. He denies blood in the stool or black tarry stools. She denies consistent and nsaid use. She reports after eating approximately 5 minutes later she develops increase in her pain. No relieving factors. Denies dizziness, Syncope, Palpitations or CP. Allergies: Coded Allergies: No Known Allergies (Unverified , 08/29/18) Patient History Past Medical History: see triage record Past Surgical History: none Pertinent Family History: none Last Menstrual Period: 08/21/17 Now: No Reviewed Nursing Documentation: PMH: Agreed; PSxH: Agreed Nursing Documentation-PMH Past Medical History: No History, Except For Hx Cardiac Problems: No - anemia seasonal allergies bronchitis Hx Cancer: No Hx Gastrointestinal Problems: No Hx Neurological Problems: No Review of Systems All Other Systems: negative except mentioned in HPI Physical Exam Vital Signs Date Time Temp Pulse Resp B/P (MAP) Pulse Ox O2 Delivery O2 Flow Rate FiO2 09/06/18 17:12 74 18 148/80 96 Room Air 09/06/18 17:26 98.4 Sp02 EP Interpretation: reviewed, normal General Appearance: no apparent distress, alert, GCS 15, non-toxic Head: normocephalic, atraumatic Eyes: bilateral eye normal inspection, bilateral eye PERRL ENT: hearing grossly normal, normal voice Neck: full range of motion Respiratory: chest non-tender, lungs clear, normal breath sounds, speaking full sentences Cardiovascular #1: regular rate, rhythm, no edema Gastrointestinal: normal bowel sounds, non tender, soft, non-distended, no guarding, no pulsatile mass Rectal: deferred Genitourinary: normal inspection, no CVA tenderness Musculoskeletal: back normal, normal range of motion, non-tender Neurologic: alert, oriented x3, responsive, motor strength/tone normal, sensory intact, speech normal, grossly normal Psychiatric: judgement/insight normal Skin: no rash, warm/dry, well hydrated, other - palms are slightly pale bilaterally. Medical Decision Making PA Attestation Dr. Whitfield is my supervising Physician whom patient management has been discussed with. Diagnostic Impression: Primary Impression: Abdominal pain Qualified Codes: R10.84 - Generalized abdominal pain Additional Impression: Abdominal bloating ER Course 53-year-old female presents to the emergency department complaining of persistent abdominal pain since previous discharge after admission on the 28. He reports increase in belching and gas pains. Patient is nausea, vomiting, fevers, chills, constipation or diarrhea. Patient denies urinary frequency, urgency, hematuria or dysuria. She also complains of abdominal bloating. She reports that she has been taking pantoprazole as prescribed with no relief of her symptoms. Patient is concerned as during her last admission she states that she was not evaluated for any of her abdominal symptoms. She reports history of significant anemia. He denies blood in the stool or black tarry stools. She denies consistent and nsaid use. She reports after eating approximately 5 minutes later she develops increase in her pain. No relieving factors. Denies dizziness, Syncope, Palpitations or CP. Ddx considered but are not limited to Diverticulitis, acute appy, diarrhea,UC, PUD, GE, pancreatitis, gallstone, H.pylori Vital signs: are WNL, pt. is afebrile H&PE are most consistent with possible PUD will do work up with hx of anemia requiring transfusions and abdominal pain w. bloating. ORDERS: CBC, CMP, lipase, UA: unremarkable -- Hct is 9.6 which is much improved from previous visits that were between 6-8 --CT Abdomen and pelvis with contrast ED INTERVENTIONS: -- Pepcid PO -- Lidocaine viscous PO -I do not identify an emergent condition at this time. With current presentation , pt. is stable for close outpatient follow up and conservative treatment. D/ w pt. to return promptly to ED with worsening or new symptoms.- Pt. verbalizes' understanding and agreement with proposed treatment plan. d/w pt. that she should be tested for H. Pylori. DISCHARGE: At this time pt. is stable for d/c to home. Will provide printed patient care instructions, and any necessary prescriptions. Care plan and follow up instructions have been discussed with the patient prior to discharge. Labs Test 09/06/18 18:09 White Blood Count 5.0 K/UL (4.8-10.8) Red Blood Count 4.37 M/UL (4.20-5.40) Hemoglobin 9.3 G/DL (12.0-16.0) Hematocrit 30.6 % (37.0-47.0) Mean Corpuscular Volume 70 FL (80-99) Mean Corpuscular Hemoglobin 21.4 PG (27.0-31.0) Mean Corpuscular Hemoglobin Concent 30.5 G/DL (32.0-36.0) Red Cell Distribution Width 22.9 % (11.6-14.8) Platelet Count 218 K/UL (150-450) Mean Platelet Volume 5.8 FL (6.5-10.1) Neutrophils (%) (Auto) 53.8 % (45.0-75.0) Lymphocytes (%) (Auto) 31.0 % (20.0-45.0) Monocytes (%) (Auto) 6.7 % (1.0-10.0) Eosinophils (%) (Auto) 6.9 % (0.0-3.0) Basophils (%) (Auto) 1.6 % (0.0-2.0) Urine Color Pale yellow Urine Appearance Clear Urine pH 7 (4.5-8.0) Urine Specific [place] 1.005 (1.005-1.035) Urine Protein Negative (NEGATIVE) Urine Glucose (UA) Negative (NEGATIVE) Urine Ketones Negative (NEGATIVE) Urine Blood Negative (NEGATIVE) Urine Nitrite Negative (NEGATIVE) Urine Bilirubin Negative (NEGATIVE) Urine Urobilinogen Normal MG/DL (0.0-1.0) Urine Leukocyte Esterase 1+ (NEGATIVE) Urine RBC 0-2 /HPF (0 - 2) Urine WBC 0-2 /HPF (0 - 2) Urine Squamous Epithelial Cells Few /LPF (NONE/OCC) Urine Bacteria Few /HPF (NONE) Sodium Level 140 MMOL/L (136-145) Potassium Level 4.0 MMOL/L (3.5-5.1) Chloride Level 106 MMOL/L (98-107) Carbon Dioxide Level 26 MMOL/L (21-32) Anion Gap 8 mmol/L (5-15) Blood Urea Nitrogen 8 mg/dL (7-18) Creatinine 0.7 MG/DL (0.55-1.30) Estimat Glomerular Filtration Rate > 60 mL/min (>60) Glucose Level 94 MG/DL (74-106) Calcium Level 9.3 MG/DL (8.5-10.1) Total Bilirubin 0.2 MG/DL (0.2-1.0) Aspartate Amino Transf (AST/SGOT) 21 U/L (15-37) Alanine Aminotransferase (ALT/SGPT) 35 U/L (12-78) Alkaline Phosphatase 50 U/L (46-116) Total Protein 7.7 G/DL (6.4-8.2) Albumin 3.7 G/DL (3.4-5.0) Globulin 4.0 g/dL Albumin/Globulin Ratio 0.9 (1.0-2.7) Lipase 93 U/L (73-393) CT/MRI/US Diagnostic Results CT/MRI/US Diagnostic Results : Imaging Test Ordered: CT Abdomen and Contrast with ORAL and IV CONTRAST Impression " unremarkable other than uterine fibroid and left ovarian cyst, minimal free fluid noted" Per official radiology report- Please see report for specific details. Last Vital Signs Date Time Temp Pulse Resp B/P (MAP) Pulse Ox O2 Delivery O2 Flow Rate FiO2 09/06/18 17:26 98.4 72 16 142/76 98 Room Air Status: improved Disposition: HOME, SELF-CARE Condition: Stable Scripts Simethicone* (SIMETHICONE*) 80 Mg Tab.chew 80 MG ORAL Q8H PRN for GAS PAIN, #20 TAB 0 Refills Prov: Myrna Sommers 09/06/18 Lidocaine HCl 2% Viscous (Lidocaine HCl 2% Viscous) 100 Ml Solution 10 ML ORAL QID, #120 ML Prov: Myrna Sommers 09/06/18 Ranitidine Hcl* (ZANTAC*) 150 Mg Tablet 150 MG ORAL TWICE A DAY for 10 Days, #20 TAB Prov: Myrna Sommers 09/06/18 Referrals: NOT CHOSEN IPA/,REFERRING (PCP) Ilana Hussein MD [facility]. [facility] Patient Instructions: Food Choices for Gastroesophageal Reflux Disease, Adult, Peptic Ulcer Additional Instructions: Take medications as directed. Follow up with a Primary Care Provider in 3-5 days, even if your symptoms have resolved. WILL NEED GI SPECIALIST REFERRAL --Please review list of primary care clinics, if you do not already have a primary care provider Return sooner to ED if new symptoms occur, or current symptoms become worse. - Please note that this Emergency Department Report was dictated using [employer] power line repairer technology software, occasionally this can lead to erroneous entry secondary to interpretation by the dictation equipment. Myrna Sommers Sep 06, 2018 19:16
--- NOTE | 2018-09-06 20:12 | NUR ---
Note undone in EDM - 09/07/18 at 0511 by MALIHA ER DISCHARGE NOTE: Patient is cleared to be discharged per Myrna Sommers/ LORENA. Pt is aox4 on room air with stable vital signs. Pt was given dc and prescription instructions and was able to verbalize understanding. Pt's IV and ID band removed. pt is d/c from ED with steady gait and pt took all belongings.
[2018-09-06] MEDS ORDERED: Lidocaine 2% Visc 15ml soln ORAL ONE (20:45)
[2018-09-06] MEDS ORDERED: LIDOCAINE VISC100 ML ORAL (21:14)
[2018-09-06] MEDS ORDERED: ZANTAC150 MG ORAL (21:14)
[2018-09-06] MEDS ORDERED: SIMETHICONE80 MG ORAL (21:14)
[2018-09-06 21:29] VITALS: BP 139/65
--- NOTE | 2018-09-06 21:29 | NUR ---
ER DISCHARGE NOTE: Patient is cleared to be discharged per Myrna Sommers/ LORENA. Pt is aox4 on room air with stable vital signs. Pt was given dc and prescription instructions and was able to verbalize understanding. Pt's IV and ID band removed. pt is d/c from ED with steady gait and pt took all belongings.
--- NOTE | 2018-09-07 09:40 | Diagnostic Imaging Report ---
Clinical Indication: Abdominal pain Technique: Patient given oral contrast. IV administration nonionic contrast. Venous phase spiral acquisition obtained through the abdomen and pelvis. Multiplanar reconstructions were generated. Total dose length product 539.23 mGycm. CTDIvol(s) 11.9 mGy. Dose reduction achieved using automated exposure control Comparison: none Findings: Patient ingested a limited amount of enteric contrast. The appendix is normal. The ascending and transverse colon is diffusely mildly distended with gas and a lesser extent stool. No evidence of diverticulosis or diverticulitis. No small bowel distention. Contrast traverses entirety of the small bowel, reaches the colon. No small bowel wall thickening. Distal esophagus, stomach, duodenum are unremarkable. There is trace free fluid in the cul-de-sac. No free intraperitoneal gas The liver demonstrates a subcentimeter low-attenuation lesion in segment 7 and another in segment 4A. The gallbladder, bile ducts, pancreas, spleen, adrenals, kidneys are unremarkable. No retroperitoneal or mesenteric mass or adenopathy. No pelvic mass or adenopathy. Uterus is somewhat bulky and somewhat heterogeneous. There is a small left ovarian cyst. The included lung bases are clear. The bones are unremarkable. Impression: No acute abnormality. Prominent gas-filled proximal colon, presumably functional in nature Fibroid uterus Subcentimeter low-attenuation liver lesions, too small to characterize, most likely benign cysts cysts or bile hamartomas. No further follow-up necessary Trace free pelvic fluid, presumed physiologic This agrees with the preliminary interpretation provided overnight by Dr. Leal The CT scanner at [facility] is accredited by the [employer] and the scans are performed using protocols designed to limit radiation exposure to as low as reasonably achievable to attain images of sufficient resolution adequate for diagnostic evaluation.
== END 2018-09-06 20:12 | disposition home or self-care (01) ==
LOC: EMR 17:47
DX: R10.84 Generalized abdominal pain (principal); R14.0 Abdominal distension (gaseous); D25.9 Leiomyoma of uterus, unspecified
CPT/HCPCS: 36415; 74177; 80053; 81003; 83690; 85025; 96374; 99284; Q9967; S0028

== ENCOUNTER 2018-12-29 18:20 | Emergency (ER) | payer MEDICAID, OTHER ==
[~2018-12-29] VITALS: Ht 149.9 cm; Wt 65.8 kg
[~2018-12-29 18:20] MED LIST changes: +LIDOCAINE VISC100 ML ORAL; +SIMETHICONE80 MG ORAL; +ZANTAC150 MG ORAL
[2018-12-29] MEDS ORDERED: NKM (18:28)
--- NOTE | 2018-12-29 18:33 | NUR ---
ED Nurse Note: PT WALKED IN TO ER TODAY FROM HOME. AOX4. PT C/O CONSTIPATION X 2 DAYS. PT STATES SHE DID HAVE A BOWEL MOVEMENT TODAY BUT WITH A LOT OF STRAIN. PT DENIES NAUSEA, VOMITING, OR DIARRHEA. PT STATES SHE HAS HAD ISSUES WITH CONSTIPATION IN THE PAST. ABDOMEN NONDISTENDED AND NONTENDER TO PALPATION. PT DENIES ABDOMINAL PAIN.
[2018-12-29 18:34] VITALS: BP 136/82
--- NOTE | 2018-12-29 19:14 | NUR ---
HAND-OFF: REPORT GIVEN TO ZENON COLBY.
--- NOTE | 2018-12-29 19:20 | NUR ---
ED Nurse Note: Recieved report from am nurse to resume care, pt in room lying on bed, awake, alert and oriented x 4, pt here for constipation, denies any cp, sob, or acute chagnes, waiting for test results and disposition, will resume care as ordered and closely monitor.
[2018-12-29 19:31] LABS: BASOPHILS % (AUTO) 1.6 % (0.0-2.0); EOSINOPHILS % (AUTO) 3.6 % (0.0-3.0); HEMATOCRIT 29.9 % (37.0-47.0); HEMOGLOBIN 9.3 G/DL (12.0-16.0); LYMPHOCYTES % (AUTO) 33.7 % (20.0-45.0); MEAN CORPUSCULAR VOLUME 74 FL (80-99); MONOCYTES % (AUTO) 8.3 % (1.0-10.0); NEUTROPHILS % (AUTO) 52.8 % (45.0-75.0); PLATELET COUNT 368 K/UL (150-450); RED BLOOD COUNT 4.04 M/UL (4.20-5.40); RED CELL DISTRIBUTION WIDTH 13.9 % (11.6-14.8); WHITE BLOOD COUNT 5.2 K/UL (4.8-10.8)
[2018-12-29 19:32] LABS: APPEARANCE,URINE CLEAR; BILIRUBIN, URINE NEGATIVE (NEGATIVE); GLUCOSE, URINE (UA) NEGATIVE (NEGATIVE); KETONES,URINE NEGATIVE (NEGATIVE); LEUKOCYTE ESTERASE ,URINE 1+ (NEGATIVE); NITRITE,URINE NEGATIVE (NEGATIVE); PH,URINE 6.5 (4.5-8.0); PROTEIN,URINE NEGATIVE (NEGATIVE); UROBILINOGEN,URINE 4 MG/DL (0.0-1.0)
[2018-12-29 19:33] LABS: COLOR,URINE YELLOW
[2018-12-29 19:40] LABS: ANION GAP 9 mmol/L (5-15); BLOOD UREA NITROGEN 13 mg/dL (7-18); CALCIUM 8.9 MG/DL (8.5-10.1); CARBON DIOXIDE 28 MMOL/L (21-32); CHLORIDE 106 MMOL/L (98-107); CREATININE 0.7 MG/DL (0.55-1.30); POTASSIUM 3.8 MMOL/L (3.5-5.1); SODIUM 143 MMOL/L (136-145)
[2018-12-29 19:45] LABS: ALANINE AMINOTRANSFERASE 20 U/L (12-78); ALBUMIN 3.7 G/DL (3.4-5.0); ALBUMIN/GLOBULIN RATIO 0.9 (1.0-2.7); ALKALINE PHOSPHATASE 60 U/L (46-116); ASPARTATE AMINO TRANSFERASE 14 U/L (15-37); BILIRUBIN,TOTAL 0.2 MG/DL (0.2-1.0)
[2018-12-29 20:00] VITALS: BP 131/76
--- NOTE | 2018-12-29 20:00 | Emergency Room Report ---
History of Present Illness General Chief Complaint: Constipation Source: Medical Record Present Illness HPI 53-year-old female with history of uterine fibroids not controlled on anemia here complaining of 2 days of constipation. Patient reports that she has a diet high in fiber and drink a lot of water try to refrain from alcohol and red meat. Patient was previously seen here at [facility] on August [address] scan was done and uterine fibroids were the only significant finding. Patient has not had a colonoscopy yet. Patient reports that she has not seen a primary care provider in years. Complains of heavy uterine bleeding that is intermittent. Denies urinary frequency and dysuria. Denies nausea vomiting. Reports that she has 3 out of 10 pain in suprapubic area on both sides. Denies fever and chills, melena, hematochezia. Has not taken medication for symptom relief. Patient is sitting comfortably with stable vital signs. Denies dizziness and syncope. Allergies: Coded Allergies: No Known Allergies (Unverified , 08/29/18) Patient History Past Medical History: see triage record Past Surgical History: unable to obtain Pertinent Family History: none Last Menstrual Period: 12/08/18 Now: No Immunizations: UTD Reviewed Nursing Documentation: PMH: Agreed; PSxH: Agreed Nursing Documentation-PMH Past Medical History: No History, Except For Hx Cardiac Problems: No - anemia seasonal allergies bronchitis Hx Cancer: No Hx Gastrointestinal Problems: No Hx Neurological Problems: No Review of Systems All Other Systems: negative except mentioned in HPI Physical Exam Vital Signs Date Time Temp Pulse Resp B/P (MAP) Pulse Ox O2 Delivery O2 Flow Rate FiO2 12/29/18 18:24 98.6 80 16 142/84 (103) 96 Room Air Sp02 EP Interpretation: reviewed, normal General Appearance: no apparent distress, alert, GCS 15, non-toxic Head: normocephalic, atraumatic Eyes: bilateral eye normal inspection, bilateral eye PERRL ENT: hearing grossly normal, normal pharynx, no angioedema, normal voice Neck: full range of motion, supple/symm/no masses Respiratory: chest non-tender, lungs clear, normal breath sounds, speaking full sentences Cardiovascular #1: regular rate, rhythm, no edema Gastrointestinal: normal bowel sounds, non tender, soft, non-distended, no guarding, no rebound Rectal: deferred Genitourinary: no CVA tenderness Musculoskeletal: back normal, gait/station normal, normal range of motion, non- tender, calf tenderness Neurologic: alert, oriented x3, responsive, motor strength/tone normal, sensory intact, speech normal Psychiatric: judgement/insight normal, memory normal, mood/affect normal, no suicidal/homicidal ideation Skin: no rash Lymphatic: no adenopathy Medical Decision Making PA Attestation Diagnosis and treatment plans were reviewed and discussed with my supervising physician Dr. Gerber Diagnostic Impression: Primary Impression: Constipation Additional Impression: Anemia ER Course 53-year-old female with history of uterine fibroids not controlled on anemia here complaining of 2 days of constipation. Patient reports that she has a diet high in fiber and drink a lot of water try to refrain from alcohol and red meat. Patient was previously seen here at [facility] on August [address] scan was done and uterine fibroids were the only significant finding. Patient has not had a colonoscopy yet. Patient reports that she has not seen a primary care provider in years. Complains of heavy uterine bleeding that is intermittent. Denies urinary frequency and dysuria. Denies nausea vomiting. Reports that she has 3 out of 10 pain in suprapubic area on both sides. Denies fever and chills, melena, hematochezia. Has not taken medication for symptom relief. Patient is sitting comfortably with stable vital signs. Denies dizziness and syncope. Ddx considered but are not limited to: appendicitis, cholecystis, gastritis, gastroenteritis, UTI, pyelonephritis, SBO, diverticulitis, influenza with GI manifestation, constipation unspecified Vital signs: are WNL, pt. is afebrile H&PE are most consistent with: Constipation unspecified, anemia ORDERS: CBC, CMP, UA, Colace, ferrous sulfate ED INTERVENTIONS: None required at this time. DISCHARGE: At this time pt. is stable for d/c to home. Will provide printed patient care instructions, and any necessary prescriptions. Care plan and follow up instructions have been discussed with the patient prior to discharge. Take medication as directed increase your fiber intake follow-up with your primary care provider for evaluation of uterine fibroids and anemia as well as colonoscopy. Return to the emergency room if worsening symptoms Last Vital Signs Date Time Temp Pulse Resp B/P (MAP) Pulse Ox O2 Delivery O2 Flow Rate FiO2 12/29/18 18:34 98.4 76 17 136/82 99 Room Air Disposition: HOME, SELF-CARE Condition: Stable Patient Instructions: Constipation, Adult, Iron Deficiency Anemia, Adult Additional Instructions: Take medication as directed increase your fiber intake follow-up with your primary care provider for evaluation of uterine fibroids and anemia as well as colonoscopy. Return to the emergency room if worsening symptoms Daisy Sweet Dec 29, 2018 20:00
[2018-12-29] MEDS ORDERED: COLACE100 MG ORAL (20:02)
[2018-12-29] MEDS ORDERED: FERROUS SULFAT325 MG ORAL (20:02)
[2018-12-29 20:10] VITALS: BP 136/82
--- NOTE | 2018-12-29 20:10 | NUR ---
ER DISCHARGE NOTE: Patient is cleared to be discharged per ERMD, pt is aox4, on room air, with stable vital signs. pt was given dc and prescription instructions, pt was able to verbalize understanding, pt id band removed without complications. pt is able to ambulate with steady gait. pt took all belongings.
== END 2018-12-29 20:10 | disposition home or self-care (01) ==
LOC: EMR 18:41
DX: K59.00 Constipation, unspecified (principal); D64.9 Anemia, unspecified; D25.9 Leiomyoma of uterus, unspecified
CPT/HCPCS: 36415; 80053; 81001; 85025; 99283

== ENCOUNTER 2019-05-10 08:39 | Emergency (ER) | payer SELFPAY ==
[~2019-05-10] VITALS: Ht 149.9 cm; Wt 49.9 kg
[~2019-05-10 08:39] MED LIST changes: +COLACE100 MG ORAL; +FERROUS SULFAT325 MG ORAL; +NKM
[2019-05-10 08:48] VITALS: BP 144/72
--- NOTE | 2019-05-10 08:55 | NUR ---
ED Nurse Note: Patient walked into ED from home c/o shortness of breath, coughing for 2 months. patient reports she has productive cough with white colored phlegm. paitent is alert awake x4 ambulatory, breathing unlabored and even, speaking in full sentences. mask provided. kleenex provided.
[2019-05-10] MEDS ORDERED: Ipratropium 0.02% Inh Soln 2.5ml UD HHN ONE (09:15)
[2019-05-10] MEDS ORDERED: Albuterol ud Inhalation HHN ONE (09:15)
[2019-05-10] MEDS ORDERED: ALBUTEROL SULF8.5 GM INH (10:10)
[2019-05-10] MEDS ORDERED: ZYRTEC10 MG ORAL (10:10)
--- NOTE | 2019-05-10 10:10 | Emergency Room Report ---
History of Present Illness General Chief Complaint: Dyspnea/Respdistress Source: Patient Present Illness HPI 53-year-old female presents with cough, congestion for the past few days, with wheezing x2 months, no chest pain, she does endorse some shortness of breath, states that when she takes albuterol it helps, she has been diagnosed with bronchitis in the past, her albuterol is old and does not work very well, no fevers, no chills, she does endorse a lot of nasal congestion, patient presents for evaluation, severity is mild Allergies: Coded Allergies: No Known Allergies (Unverified , 08/29/18) Patient History Past Medical History: see triage record Last Menstrual Period: Mar, 2019 Reviewed Nursing Documentation: PMH: Agreed; PSxH: Agreed Nursing Documentation-PMH Past Medical History: No History, Except For Hx Cardiac Problems: No - anemia seasonal allergies bronchitis Hx Cancer: No Hx Gastrointestinal Problems: No Hx Neurological Problems: No Review of Systems All Other Systems: negative except mentioned in HPI Physical Exam Vital Signs Date Time Temp Pulse Resp B/P (MAP) Pulse Ox O2 Delivery O2 Flow Rate FiO2 05/10/19 08:48 98.6 86 19 144/72 99 Room Air 05/10/19 09:26 21 Sp02 EP Interpretation: reviewed, normal General Appearance: well appearing, no apparent distress, alert Head: normocephalic, atraumatic Eyes: bilateral eye PERRL, bilateral eye EOMI ENT: uvula midline, moist mucus membranes, nasal congestion Neck: supple, thyroid normal, supple/symm/no masses Respiratory: lungs clear, no respiratory distress, no retraction, no accessory muscle use Cardiovascular #1: normal peripheral pulses, regular rate, rhythm, no edema, no gallop, no murmur Gastrointestinal: non tender, soft, no guarding, no rebound Musculoskeletal: normal inspection Neurologic: alert, oriented x3 Psychiatric: mood/affect normal Skin: no rash, warm/dry Medical Decision Making Diagnostic Impression: Primary Impression: Acute bronchitis Qualified Codes: J20.9 - Acute bronchitis, unspecified ER Course 53-year-old female presents most likely with bronchitis, patient given duo nebs with improvement in her breathing, and steroid burst differential diagnosis include pneumonia, upper respiratory infection, viral syndrome disposition home with return precautions Chest X-Ray Diagnostic Results Chest X-Ray Diagnostic Results : Chest X-Ray Ordered: Yes # of Views/Limited/Complete: 1 View Indication: Other - cough EP Interpretation: Yes Interpretation: no consolidation, no effusion, no pneumothorax, no acute cardiopulmonary disease Impression: No acute disease Electronically Signed by: Dung Gerber MD Last Vital Signs Date Time Temp Pulse Resp B/P (MAP) Pulse Ox O2 Delivery O2 Flow Rate FiO2 05/10/19 09:26 80 20 100 Room Air 21 81 22 99 05/10/19 08:48 98.6 144/72 (96) Disposition: HOME, SELF-CARE Scripts Cetirizine Hcl* (ZYRTEC*) 10 Mg Tablet 10 MG ORAL DAILY, #30 TAB 0 Refills Prov: Dung Gerber MD 05/10/19 Albuterol Sulfate* (ALBUTEROL SULFATE MDI*) 8.5 Gm Hfa.aer.ad 2 PUFF INH Q4H PRN for cough/wheezing, #1 EA 0 Refills Prov: Dung Gerber MD 05/10/19 Referrals: NOT CHOSEN IPA/,REFERRING (PCP) [facility] Patient Instructions: Acute Bronchitis, [id number] Additional Instructions: The patient was provided with discharge instructions, notified to follow-up with a primary care doctor and or specialist in the next 24-48 hours, and to return to the ED if they have worsening of their symptoms. Please note that this report is being documented using DRAGON technology. This can lead to erroneous entry secondary to incorrect interpretation by the dictating instrument. Dung Gerber MD May 10, 2019 10:10
[2019-05-10 10:18] VITALS: BP 144/72
--- NOTE | 2019-05-10 10:18 | NUR ---
ER DISCHARGE NOTE: Patient is cleared to be discharged per ERMD DR FALL, pt is aox4, on room air, with stable vital signs. pt was given dc and prescription instructions, pt was able to verbalize understanding, pt id band removed without complications. pt is able to ambulate with steady gait. pt took all belongings.
--- NOTE | 2019-05-10 10:24 | Diagnostic Imaging Report ---
EXAM: XR Chest, 1 View CLINICAL HISTORY: COUGH TECHNIQUE: Frontal view of the chest. COMPARISON: No relevant prior studies available. FINDINGS: Lungs: Mildly increased interstitial markings. The lungs are otherwise clear without focal consolidation. Pleural space: Unremarkable. The costophrenic angles are sharp. No visible pneumothorax. Heart: Unremarkable. No cardiomegaly. Mediastinum: Unremarkable. Bones/joints: Unremarkable. IMPRESSION: Mildly increased interstitial markings. This is nonspecific but may suggest mild pulmonary vascular congestion or a mild interstitial pneumonitis. No focal consolidation.
== END 2019-05-10 10:18 | disposition home or self-care (01) ==
LOC: EMR 09:10
DX: J20.9 Acute bronchitis, unspecified (principal)
CPT/HCPCS: 71045; 99284; J8540

== ENCOUNTER 2019-07-10 17:24 | Emergency (ER) | payer SELFPAY ==
[~2019-07-10] VITALS: Ht 149.9 cm; Wt 66.2 kg
[~2019-07-10 17:24] MED LIST changes: +ALBUTEROL SULF8.5 GM INH; +ZYRTEC10 MG ORAL
[2019-07-10 17:32] VITALS: BP 143/79
--- NOTE | 2019-07-10 17:42 | NUR ---
ED Nurse Note: Pt walked in due to coughing with phlegm x 1 month. No fever and denies recent travel. AAO x4 and ambulatory.
--- NOTE | 2019-07-10 18:02 | Emergency Room Report ---
History of Present Illness General Chief Complaint: Upper Respiratory Illness Source: Patient Present Illness HPI 54-year-old female with no symptom past medical history here complaining of 1 month of cough and congestion as well as wheezing. Denies any recent travel, coming contact with people who have recently traveled. 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 Denies any fever and chills, abdominal pain, nausea vomiting, headache and dizziness. Has not been taking medication for symptom relief and will be using home remedies. Patient appears to be afebrile with normal vital signs. Denies chest pain, pain radiation, shortness of breath at this time. Allergies: Coded Allergies: No Known Allergies (Unverified , 08/29/18) Patient History Past Medical History: see triage record Past Surgical History: none Pertinent Family History: none Now: No Immunizations: UTD Reviewed Nursing Documentation: PMH: Agreed; PSxH: Agreed Nursing Documentation-PMH Past Medical History: No History, Except For Hx Cancer: No Hx Gastrointestinal Problems: No Hx Neurological Problems: No Review of Systems All Other Systems: negative except mentioned in HPI Physical Exam Vital Signs Date Time Temp Pulse Resp B/P (MAP) Pulse Ox O2 Delivery O2 Flow Rate FiO2 07/10/19 17:32 98.2 83 16 143/79 (100) 99 Room Air Sp02 EP Interpretation: reviewed, normal General Appearance: no apparent distress, alert, GCS 15, non-toxic Head: normocephalic, atraumatic Eyes: bilateral eye normal inspection, bilateral eye PERRL ENT: hearing grossly normal, normal pharynx, normal voice Neck: full range of motion, supple, supple/symm/no masses Respiratory: chest non-tender, no rhonchi, no respiratory distress, no retraction, no accessory muscle use, speaking full sentences, wheezing - diffused Cardiovascular #1: regular rate, rhythm, no edema, no murmur, normal capillary refill Cardiovascular #2: 2+ carotid (R), 2+ carotid (L), 2+ radial (R), 2+ radial (L) Gastrointestinal: normal bowel sounds, non tender, soft, non-distended, no guarding, no rebound Rectal: deferred Genitourinary: no CVA tenderness Musculoskeletal: back normal, no calf tenderness Neurologic: alert, motor strength/tone normal, oriented x3, sensory intact, responsive, speech normal Skin: no rash Lymphatic: no adenopathy Medical Decision Making PA Attestation All my diagnosis and treatment plans were reviewed ad discussed with my supervising physician Dr. Nguyen Diagnostic Impression: Primary Impression: Acute bacterial bronchitis ER Course 54-year-old female with no symptom past medical history here complaining of 1 month of cough and congestion as well as wheezing. Denies any recent travel, coming contact with people who have recently traveled. 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 Denies any fever and chills, abdominal pain, nausea vomiting, headache and dizziness. Has not been taking medication for symptom relief and will be using home remedies. Patient appears to be afebrile with normal vital signs. Denies chest pain, pain radiation, shortness of breath at this time. Ddx considered but are not limited to: bronchitis, PNA, URI viral, bacterial bronchitis Vital signs: are WNL, pt. is afebrile H&PE are most consistent with: bacterial bronchitis due to duration of symptoms and not taking medication for symptom relief ORDERS: Chest x-ray, azithromycin, Medrol Dosepak, Phenergan DM for nighttime, guaifenesin for daytime, albuterol inhaler ED INTERVENTIONS: None required at this time. DISCHARGE: At this time pt. is stable for d/c to home. Will provide printed patient care instructions, and any necessary prescriptions. Care plan and follow up instructions have been discussed with the patient prior to discharge. Patient to follow primary care provider, increase oral hydration, take medication as directed, if worsening symptoms return to emergency room at this time no further evaluation this patient denies any chest pain interventions are within normal limits. Chest X-Ray Diagnostic Results Chest X-Ray Diagnostic Results : Chest X-Ray Ordered: Yes # of Views/Limited/Complete: 1 View Indication: Other - Cough EP Interpretation: Yes PA Xray: Interpretation reviewed, by supervising MD, and agrees with findings. Interpretation: no consolidation, no effusion, no pneumothorax Impression: No acute disease Electronically Signed by: Daisy Gomez PA-C Last Vital Signs Date Time Temp Pulse Resp B/P (MAP) Pulse Ox O2 Delivery O2 Flow Rate FiO2 07/10/19 17:42 87 15 Room Air 07/10/19 17:32 98.2 143/79 99 Disposition: HOME, SELF-CARE Condition: Stable Scripts Methylprednisolone (Methylprednisolone*) 4MG Dspk 4 MG ORAL DIRECTED for 6 Days, #21 EA 0 Refills Day 1: Two tablets before breakfast, one after lunch, one after dinner, and two at bedtime. If started late in the day, take all six tablets at once or divide into two or three doses, unless otherwise directed by prescriber. Day 2: One tablet before breakfast, one after lunch, one after dinner, and two at bedtime Day 3: One tablet before breakfast, one after lunch, one after dinner, and one at bedtime Day 4: One tablet before breakfast, one after lunch, and one at bedtime Day 5: One tablet before breakfast and one at bedtime Day 6: One tablet before breakfast Prov: Daisy Sweet 07/10/19 Guaifenesin* (GUAIFENESIN*) 100 Mg/5 Ml Liquid 15 ML ORAL Q6H, #120 ML 0 Refills Prov: Daisy Sweet 07/10/19 D-Methorphan Hb/Prometh Hcl* (PROMETHAZINE-DM SYRUP*) 118 Ml Syrup 5 ML ORAL BEDTIME PRN for For Cough, #120 ML 0 Refills Prov: Daisy Sweet 07/10/19 Albuterol Sulfate (VENTOLIN HFA) 18 Gm Hfa.aer.ad 2 PUFFS INH EVERY 6 HOURS, #18 GM 0 Refills Prov: Daisy Sweet 07/10/19 Azithromycin* (ZITHROMAX*) 250 Mg Tablet 250 MG ORAL DAILY, #6 TAB 0 Refills Take two tables once daily for 1 day, then one tablet once daily for 4 days. Prov: Daisy Sweet 07/10/19 Patient Instructions: Acute Bronchitis, [id number] Additional Instructions: Take medication as directed, follow-up with your primary care provider, increase oral hydration, if worsening symptoms return to the emergency room Daisy Sweet Jul 10, 2019 18:02
[2019-07-10] MEDS ORDERED: GUAIFENESI100 MG/5 M ORAL (18:03)
[2019-07-10] MEDS ORDERED: PROMETHAZINE-D118 ML ORAL (18:03)
[2019-07-10] MEDS ORDERED: VENTOLIN HFA18 GM INH (18:03)
[2019-07-10] MEDS ORDERED: ZITHROMAX250 MG ORAL (18:03)
[2019-07-10] MEDS ORDERED: MEDROL DOSEPAK4 MG ORAL (18:03)
[2019-07-10 18:12] VITALS: BP 138/85
--- NOTE | 2019-07-10 18:12 | NUR ---
ER DISCHARGE NOTE: Patient is cleared to be discharged per PA pt is aox4, on room air, with stable vital signs. pt was given dc and prescription instructions, pt was able to verbalize understanding, pt id band removed without complications. pt is able to ambulate with steady gait. pt took all belongings.
--- NOTE | 2019-07-11 12:29 | Diagnostic Imaging Report ---
Indication: Dyspnea Comparison: 05/10/2019 A single view chest radiograph was obtained. Findings: Cardiomediastinal appearance is within normal limits for age. The lungs are clear. Pulmonary vascularity is appropriate. The diaphragmatic contour is smooth and costophrenic angles are sharp. No pleural effusions are identified. The bones are unremarkable. Impression: No acute findings
== END 2019-07-10 18:12 | disposition home or self-care (01) ==
LOC: EMR 17:45
DX: J20.9 Acute bronchitis, unspecified (principal)
CPT/HCPCS: 71045; 99283

== ENCOUNTER 2020-04-13 14:00 | Emergency (ER) | payer SELFPAY ==
[~2020-04-13] VITALS: Ht 149.9 cm; Wt 59.0 kg
[~2020-04-13 14:00] MED LIST changes: +GUAIFENESI100 MG/5 M ORAL; +MEDROL DOSEPAK4 MG ORAL; +PROMETHAZINE-D118 ML ORAL; +VENTOLIN HFA18 GM INH; +ZITHROMAX250 MG ORAL
[2020-04-13 14:11] VITALS: BP 135/70
--- NOTE | 2020-04-13 14:43 | Emergency Room Report ---
History of Present Illness General Chief Complaint: Headache Source: Patient Present Illness HPI 54 YO female presents to the ED c/o 11/16 in severity right sided ADEN and Ear pain x 2 days. Pt. reports some nasal congestion as well. Pt. reports pain exacerbated if she does not keep a piece of cotton in her ear. Pt. denies fevers or chills. She denies nausea, vomiting, neck pain/stiffness, or photophobia. She denies acute onset. She reports pain to be constant with intermittent exacerbations. She reports Hx of similar symptoms in the past with sinus infection and discloses usually at this time of year. She denies hx of migraines. She denies hx of HTN or taking blood thinning medications. She denies urinary symptoms. She denies loss or decreased hearing. She denies ear discharge. She denies external ear tenderness. Pt. reports some scalp tenderness to right side of the head above the ear. She denies rashes. She denies dizziness or CP. Allergies: Coded Allergies: No Known Allergies (Unverified , 08/29/18) COVID-19 Screening Contact w/high risk pt: No Experienced COVID-19 symptoms?: No COVID-19 Testing performed POT MAKER: No Patient History Past Medical History: see triage record Past Surgical History: none Pertinent Family History: none Now: No Reviewed Nursing Documentation: PMH: Agreed; PSxH: Agreed Nursing Documentation-PMH Past Medical History: No History, Except For Hx Cancer: No Hx Gastrointestinal Problems: No Hx Neurological Problems: No Review of Systems All Other Systems: negative except mentioned in HPI Physical Exam Vital Signs Date Time Temp Pulse Resp B/P (MAP) Pulse Ox O2 Delivery O2 Flow Rate FiO2 04/13/20 14:11 97.9 90 19 135/70 (91) 100 Room Air Sp02 EP Interpretation: reviewed, normal General Appearance: no apparent distress, alert, GCS 15, non-toxic Head: normocephalic, atraumatic, other - no rash Eyes: bilateral eye normal inspection, bilateral eye PERRL, bilateral eye other - no photophobia ENT: hearing grossly normal, normal pharynx, normal voice, TMs + canals normal, uvula midline, nasal congestion, other Neck: full range of motion, no meningismus, no bony tend Respiratory: chest non-tender, lungs clear, normal breath sounds, no respiratory distress, no accessory muscle use, no wheezing, speaking full sentences Cardiovascular #1: regular rate, rhythm Musculoskeletal: normal range of motion, gait/station normal, non-tender Neurologic: alert, motor strength/tone normal, oriented x3, sensory intact, responsive, speech normal, normal gait, grossly normal, no focal defects, other - negative pronator, equal production administrator strength Psychiatric: judgement/insight normal Skin: no rash, normal color Lymphatic: no adenopathy Medical Decision Making PA Attestation Dr. Saini Is my supervising Physician whom patient management has been discussed with. They Diagnostic Impression: Primary Impression: Headache Qualified Codes: R51.9 - Headache, unspecified Additional Impression: Ear pain, right ER Course Ddx considered but are not limited to migraine, SAH, Pseudomotor Cerebri,, Mass lesion, Cluster ADEN, Tension ADEN, Post lumbar puncture ADEN. Vital signs: are WNL, pt. is afebrile H&PE are most consistent with migraine headache ORDERS: - Pt. Declines UA, and reports she just went. ED INTERVENTIONS: - Tylenol PO -I do not identify an emergent condition at this time. With current presentation, pt. is stable for close outpatient follow up and conservative treatment. D/w pt. to return promptly to ED with worsening or new symptoms.- Pt. verbalizes' understanding and agreement with proposed treatment plan. DISCHARGE: At this time pt. is stable for d/c to home. Will provide printed patient care instructions, and any necessary prescriptions. Care plan and follow up instructions have been discussed with the patient prior to discharge. Last Vital Signs Date Time Temp Pulse Resp B/P (MAP) Pulse Ox O2 Delivery O2 Flow Rate FiO2 04/13/20 14:11 97.9 90 19 135/70 (91) 100 Room Air Status: improved Disposition: HOME, SELF-CARE Condition: Stable Scripts Acetaminophen* (TYLENOL EXTRA STRENGTH*) 500 Mg Tablet 500 MG ORAL Q6H, #30 TAB 0 Refills Prov: Myrna Sommers 04/13/20 Pseudoephedrine Hcl* (NEXAFED*) 30 Mg Tablet 30 MG ORAL Q6H PRN for congestion for 5 Days, #30 TAB Prov: Myrna Sommers 04/13/20 Referrals: NOT CHOSEN IPA/,REFERRING (PCP) [facility] Patient Instructions: General Headache Without Cause Additional Instructions: ~ ~ An emergent medical condition has not been identified based on this patients presentation, exam and any necessary testing/imaging. The patient is determined to be stable for outpatient follow-up and management of symptoms by a primary care provider. Take medications as directed. Follow up with a Primary Care Provider in 3-5 days, even if your symptoms have resolved. ENT or Neurology SPECIALIST EVALUATION If symptoms persist- --Please review list of primary care clinics, if you do not already have a primary care provider Return sooner to ED if new symptoms occur, or current symptoms become worse. RETURN TO ED IF YOU DEVELOP A RASH. - Please note that this Emergency Department Report was dictated using The [employer] body repairer technology software, occasionally this can lead to erroneous entry secondary to interpretation by the dictation equipment. Myrna Sommers Apr 13, 2020 14:43
[2020-04-13] MEDS ORDERED: NEXAFED30 MG ORAL (14:45)
[2020-04-13] MEDS ORDERED: TYLENOL EXTRA500 MG ORAL (14:45)
[2020-04-13 15:00] VITALS: BP 125/76
== END 2020-04-13 15:00 | disposition home or self-care (01) ==
LOC: EMR 14:22
DX: R51.9 Headache, unspecified (principal); H92.01 Otalgia, right ear
CPT/HCPCS: 99282

== ENCOUNTER 2020-05-28 16:46 | Emergency (ER) | payer SELFPAY ==
[~2020-05-28] VITALS: Ht 149.9 cm; Wt 63.5 kg
[~2020-05-28 16:46] MED LIST changes: +NEXAFED30 MG ORAL; +TYLENOL EXTRA500 MG ORAL
--- NOTE | 2020-05-28 17:02 | NUR ---
ED Nurse Note: Pt walked into ED for cough, sneezing, sore throat ADEN and bodyaches since yesterday. She denies NVD and has not been tested for COVID. Pt is alert and orientedx4, ambulatory. She has been seen by JUAN.
[2020-05-28 17:03] VITALS: BP 116/62
--- NOTE | 2020-05-28 17:28 | Emergency Room Report ---
History of Present Illness General Chief Complaint: Flu Like Symptoms Source: Patient Present Illness HPI Patient presents with upper respiratory symptoms. She has history of bronchitis. She has been wheezing. She is not sure what she is done with her albuterol inhaler. She denies fevers or chills. She has been sneezing have not sore throat. She does not recall using prednisone in the past. The cough is nonproductive. She has a mild headache when she coughs. She rates the pain 2/10 and pressure. It does not radiate. 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 Son tested neg for covid 3 weeks ago. No chest pain, palpitations, nausea, vomiting, diarrhea, dysuria, abdominal pain, joint pain, rashes, depression, anxiety, visual changes, dizziness. Allergies: Coded Allergies: No Known Allergies (Unverified , 08/29/18) COVID-19 Screening Contact w/high risk pt: No Experienced COVID-19 symptoms?: No COVID-19 Testing performed [employer]: No Patient History Past Medical History: see triage record, other - Bronchitis Pertinent Family History: asthma Social History: Denies: smoking Social History Narrative security Reviewed Nursing Documentation: PMH: Agreed; PSxH: Agreed Nursing Documentation-PMH Past Medical History: No History, Except For Hx Cancer: No Hx Gastrointestinal Problems: No Hx Neurological Problems: No Review of Systems All Other Systems: negative except mentioned in HPI Physical Exam Vital Signs Date Time Temp Pulse Resp B/P (MAP) Pulse Ox O2 Delivery O2 Flow Rate FiO2 05/28/20 16:56 98.4 112 18 114/68 (83) 95 Room Air 05/28/20 17:03 99 Repeat pulse oximetry 99% Sp02 EP Interpretation: reviewed, normal General Appearance: well appearing, no apparent distress, GCS 15 Head: normocephalic Eyes: bilateral eye normal inspection, bilateral eye PERRL ENT: normal pharynx, no angioedema, moist mucus membranes Neck: full range of motion, supple Respiratory: wheezing, expiration Cardiovascular #1: regular rate, rhythm Cardiovascular #2: 2+ radial (R) Gastrointestinal: normal inspection Genitourinary: no CVA tenderness Musculoskeletal: gait/station normal, no calf tenderness Neurologic: alert, grossly normal Psychiatric: mood/affect normal Skin: normal color, no rash, warm/dry Medical Decision Making Diagnostic Impression: Primary Impression: Asthmatic bronchitis Qualified Codes: J45.31 - Mild persistent asthma with (acute) exacerbation ER Course Patient with a history of bronchitis in the past presents with upper respiratory symptoms and wheezing. Differential includes COVID-19, asthmatic bronchitis, upper respiratory infection amongst others. Based on the symptom complex and the patient's social history COVID-19 is less likely. Repeat pulse oximetry is 99%. Patient has no dyspnea on exertion. Cardiac risk factors are nil. No apparent emergency at this time. Discussed the need to fill prescriptions at discharge. Due to lack nursing staff patient elected to fill prescriptions as an outpatient. Discussed the need for follow-up with her own physician. Patient stable for close outpatient observation and treatment. Last Vital Signs Date Time Temp Pulse Resp B/P (MAP) Pulse Ox O2 Delivery O2 Flow Rate FiO2 05/28/20 17:39 98.4 99 19 115/65 97 Room Air 05/28/20 17:03 99 Status: unchanged Disposition: HOME, SELF-CARE Condition: Stable Scripts Acetaminophen (Tylenol) 325 Mg Tablet 650 MG ORAL Q6H PRN for Prn Pain/Headache/Temp > 101, #20 TAB 0 Refills Prov: Malcolm Whitfield MD 05/28/20 Guaifenesin/Codeine Phos* (ROBITUSSIN AC*) 118 Ml Liquid 5 ML ORAL Q6H PRN for For Cough, #60 ML 0 Refills Prov: Malcolm Whitfield MD 05/28/20 Albuterol Sulfate* (Albuterol Sulfate Hfa*) 8.5 Gm Hfa.aer.ad 2 PUFF INH Q6H, #1 INH 2 Refills Prov: Malcolm Whitfield MD 05/28/20 Prednisone* (PREDNISONE*) 20 Mg Tablet 40 MG ORAL DAILY, #10 TAB Prov: Malcolm Whitfield MD 05/28/20 Referrals: NON PHYSICIAN (PCP) Malcolm hWitfield MD May 28, 2020 17:28
[2020-05-28] MEDS ORDERED: ALBUTEROL SULF8.5 G1 INH (17:31)
[2020-05-28] MEDS ORDERED: GUAIFENESIN-CO118 M1 ORAL (17:31)
[2020-05-28] MEDS ORDERED: PREDNISONE20 MG ORAL (17:31)
[2020-05-28] MEDS ORDERED: TYLENOL325 MG ORAL (17:31)
[2020-05-28 17:39] VITALS: BP 115/65
--- NOTE | 2020-05-28 17:39 | NUR ---
ER DISCHARGE NOTE: Patient is cleared to be discharged per ERMD, pt is aox4, on room air, with stable vital signs. pt was given dc and prescription instructions, pt was able to verbalize understanding, pt id band removed. pt is able to ambulate with steady gait. pt took all belongings. Pt educated on prescriptions.
== END 2020-05-28 17:45 | disposition home or self-care (01) ==
LOC: EMR 17:22
DX: J45.31 Mild persistent asthma with (acute) exacerbation (principal)
CPT/HCPCS: 99282